=== PATIENT | female | born 1945 | race Two or more races ===

== ENCOUNTER → 2016-12-07 | Outpatient (CLI) | payer MEDICARE, OTHER ==
[~2016-12-07] MED LIST: DICLOFENAC SODI75 MG ORAL; FLUOXETINE HCL10 MG ORAL; FLUOXETINE HCL40 MG ORAL; METOPROLOL SUCC50 MG ORAL; OMEGA 3 FISH O1 EAC1 PO; PREMARIN0.45 MG ORAL; PREMARIN1.25 MG PO; PROVERA2.5 MG ORAL; UNOBMED; ZANTAC150 MG ORAL
--- NOTE | 2016-12-07 15:18 | GI Initial Consult Note ---
History of Present Illness General Date patient seen: Dec 07, 2016 Time patient seen: 15:08 Referring physician: JUAN Reason for Consultation: CONSTIPATION Present Illness HPI 71 year old female patient referred to [facility] by Dr. Rojas for evaluation of constipation and repeat colonoscopy. Hx of EGD/colonoscopy back in 2010 with dx of gastric ulcer and diverticulosis. >> H. Pylori negative Home Meds Reported Medications Fluoxetine Hcl* (FLUOXETINE HCL*) 10 Mg Capsule, ORAL DAILY, CAP 08/18/14 [place]-3 Fatty Acids/Fish Oil (OMEGA 3 FISH OIL SOFTGEL) 1 Each Capsule.dr, 1 EACH PO DAILY, CAP 08/18/14 Medroxyprogesterone Acet* (PROVERA*) 2.5 Mg Tablet, ORAL DAILY, #10 TAB 0 Refills 08/18/14 Estrogens,Conjugated (PREMARIN) 0.45 Mg Tablet, ORAL DAILY, #30 TAB 0 Refills 08/18/14 Med list reviewed/reconciled: Yes Allergies: Coded Allergies: No Known Allergies (Unverified , 08/16/14) Patient History History Provided By: Patient, Medical Record PMH Narrative From [facility] on HRT x 20 years Dyspnea hypothyroidism PSHx Thyroidectomy Family History Narrative N/A Social History: Denies: alcohol use, drug use, other, smoking Review of Systems All Other Systems: negative except mentioned in HPI Physical Exam T 98 BP 123/68 P 86 HT 5'7 WT 181 General Appearance: well appearing, alert Head: normocephalic EENT: normal ENT inspection Neck: full range of motion, supple Respiratory: lungs clear, normal breath sounds, no respiratory distress Cardiovascular: normal rate Gastrointestinal: normal inspection, non tender, soft Rectal: deferred Genitourinary: normal inspection, no CVA tenderness Musculoskeletal: back normal Neurologic: normal inspection, alert, oriented x3, responsive Psychiatric: normal inspection, judgement/insight normal, memory normal Skin: normal inspection, normal color, no rash, warm/dry GI: Plan Problems: (1) Colonoscopy planned (2) Constipation (3) Gastric ulcer (4) Diverticulosis Plan increase Linzess to 290 mcg trial rx Movantic RTC x 1 week discuss repeat colon on next visit Seen with Dr. Roberts Thank you for referring this kind patient. Jeaneth Desir N.P. Dec 07, 2016 15:18
[2016-12-07 16:15] VITALS: BP 123/68
== END | disposition home or self-care (01) ==
LOC: PAN 14:32
DX: K59.00 Constipation, unspecified (principal); K25.9 Gastric ulcer, unspecified as acute or chronic, without hemorrhage or perforation; K57.90 Diverticulosis of intestine, part unspecified, without perforation or abscess without bleeding
CPT/HCPCS: 99201

== ENCOUNTER 2017-05-17 13:41 | Outpatient (CLI) | payer MEDICARE, OTHER ==
[2017-05-17 13:53] VITALS: BP 114/61
[2017-05-17] MEDS ORDERED: LINZESS145 MCG PO (13:56)
[2017-05-17] MEDS ORDERED: MINERAL OIL25 ML ORAL (13:56)
--- NOTE | 2017-05-17 14:39 | GI Progress Note ---
Assessment/Plan Problems: (1) Constipation ICD Codes: K59.00 - Constipation, unspecified SNOMED: 63618969 Status: stable Status Narrative Seen with Dr. Roberts. Assessment/Plan rx Miralax rx lactulose cont Linzess to 290 mcg RTC x 3 months discuss repeat colon on next visit Subjective Subjective constipation Objective Last 24 Hour Vital Signs Date Time Temp Pulse Resp B/P Pulse Ox O2 Delivery O2 Flow Rate FiO2 05/17/17 13:53 98.0 89 16 114/61 General Appearance: no apparent distress, alert Cardiovascular: normal rate Respiratory/Chest: normal breath sounds, no respiratory distress Abdominal Exam: normal bowel sounds, non tender, soft Extremities: normal range of motion Jeaneth Desir N.P. May 17, 2017 14:39
== END 2017-05-17 14:18 | disposition home or self-care (01) ==
LOC: PAN 13:41
DX: K59.00 Constipation, unspecified (principal)
CPT/HCPCS: 99211

== ENCOUNTER 2017-06-28 13:36 | Outpatient (CLI) | payer MEDICARE, OTHER ==
[~2017-06-28 13:36] MED LIST changes: +LINZESS145 MCG PO; +MINERAL OIL25 ML ORAL
--- NOTE | 2017-06-28 17:32 | GI Progress Note ---
Assessment/Plan Problems: (1) Diverticulosis ICD Codes: K57.90 - Diverticulosis of intestine, part unspecified, without perforation or abscess without bleeding SNOMED: 989287702 (2) Gastric ulcer ICD Codes: K25.9 - Gastric ulcer, unspecified as acute or chronic, without hemorrhage or perforation SNOMED: 883366573 (3) Constipation ICD Codes: K59.00 - Constipation, unspecified SNOMED: 48239259 Status: stable Status Narrative Discussed with Dr. Roberts. Assessment/Plan Rx Trulance ordered breath test rx Librax bid RTC post studies discuss repeat colon on next visit Subjective Gastrointestinal/Abdominal: Reports: abdominal pain Objective T 98 BP 103/53 P 84 98 RA General Appearance: no apparent distress, alert Cardiovascular: normal rate Respiratory/Chest: normal breath sounds, no respiratory distress Abdominal Exam: normal bowel sounds, non tender, soft Extremities: normal range of motion Jeaneth Desir N.P. Jun 28, 2017 17:32
== END 2017-06-28 14:05 | disposition home or self-care (01) ==
LOC: PAN 13:36
DX: K57.90 Diverticulosis of intestine, part unspecified, without perforation or abscess without bleeding (principal); K25.9 Gastric ulcer, unspecified as acute or chronic, without hemorrhage or perforation; K59.00 Constipation, unspecified
CPT/HCPCS: 99211

== ENCOUNTER 2017-08-16 13:06 | Outpatient (CLI) | payer MEDICARE, OTHER ==
--- NOTE | 2017-08-16 13:49 | GI Progress Note ---
Assessment/Plan Problems: (1) Gas pain ICD Codes: R14.1 - Gas pain SNOMED: 98271344 (2) Constipation ICD Codes: K59.00 - Constipation, unspecified SNOMED: 23841705 (3) IBS (irritable bowel syndrome) ICD Codes: K58.9 - Irritable bowel syndrome without diarrhea SNOMED: 29662283 Status: stable Status Narrative Seen with Dr. Roberts. Assessment/Plan rx miralax simethicone prn RTC x 2 weeks Subjective Subjective abdominal pain >> LUQ/LLQ constipation abdominal bloating Objective T 98.2 BP 121/58 P 89 General Appearance: no apparent distress, alert Cardiovascular: normal rate Respiratory/Chest: normal breath sounds, no respiratory distress Abdominal Exam: normal bowel sounds, non tender, soft Extremities: normal range of motion Jeaneth Desir N.P. Aug 16, 2017 13:49
[2017-08-16 15:15] VITALS: BP 121/58
== END 2017-08-16 13:45 | disposition home or self-care (01) ==
LOC: PAN 13:06
DX: R14.1 Gas pain (principal); K59.00 Constipation, unspecified; K58.9 Irritable bowel syndrome, unspecified
CPT/HCPCS: 99211

== ENCOUNTER 2017-10-23 11:16 | Outpatient (CLI) | payer MEDICARE, OTHER ==
[2017-10-23 11:26] VITALS: BP 100/57
[2017-10-23 12:09] LABS: APPEARANCE,URINE SLIGHTLY CLOUDY; KETONES,URINE NEGATIVE (NEGATIVE); LEUKOCYTE ESTERASE ,URINE NEGATIVE (NEGATIVE); NITRITE,URINE NEGATIVE (NEGATIVE); PH,URINE 5 (4.5-8.0); PROTEIN,URINE NEGATIVE (NEGATIVE); UROBILINOGEN,URINE NORMAL MG/DL (0.0-1.0)
[2017-10-23 12:12] LABS: RBC,URINE 0-2 /HPF (0 - 2); WBC,URINE 0-2 /HPF (0 - 2)
[2017-10-23 12:13] LABS: BACTERIA,URINE FEW /HPF; SQUAMOUS EPITHELIAL CELL,UR FEW /LPF (NONE/OCC)
--- NOTE | 2017-10-23 13:55 | GI Progress Note ---
Assessment/Plan Problems: (1) IBS (irritable bowel syndrome) ICD Codes: K58.9 - Irritable bowel syndrome without diarrhea SNOMED: 53691253 (2) Gas pain ICD Codes: R14.1 - Gas pain SNOMED: 82445356 (3) Constipation ICD Codes: K59.00 - Constipation, unspecified SNOMED: 60186110 Status: stable Status Narrative Seen with Dr. Roberts. Assessment/Plan ordered UA + culture rx Bentyl 20mg Nexium RTC x 1 month Subjective Subjective abdominal pain constipation abdominal bloating Objective T 98.2 BP 110/57 P 87 97 RA Laboratory Tests Test 10/23/17 11:47 Urine Color Pale yellow Urine Appearance Slightly cloudy Urine pH 5 (4.5-8.0) Urine Specific [place] 1.015 (1.005-1.035) Urine Protein Negative (NEGATIVE) Urine Glucose (UA) Negative (NEGATIVE) Urine Ketones Negative (NEGATIVE) Urine Occult Blood 2+ (NEGATIVE) H Urine Nitrite Negative (NEGATIVE) Urine Bilirubin Negative (NEGATIVE) Urine Urobilinogen Normal MG/DL (0.0-1.0) Urine Leukocyte Esterase Negative (NEGATIVE) Urine RBC 0-2 /HPF (0 - 2) Urine WBC 0-2 /HPF (0 - 2) Urine Squamous Epithelial Cells Few /LPF (NONE/OCC) Urine Bacteria Few /HPF (NONE) General Appearance: WD/WN, no apparent distress, alert Cardiovascular: normal rate Respiratory/Chest: normal breath sounds, no respiratory distress Abdominal Exam: normal bowel sounds, non tender, soft Extremities: normal range of motion, non-tender Jeaneth Desir N.P. Oct 23, 2017 13:55
== END 2017-10-23 11:49 | disposition home or self-care (01) ==
LOC: PAN 11:16
DX: K58.9 Irritable bowel syndrome, unspecified (principal); R14.1 Gas pain; K59.00 Constipation, unspecified
CPT/HCPCS: 81003; 87086; G0463; 99212

== ENCOUNTER 2017-11-01 12:57 | Outpatient (CLI) | payer MEDICARE, OTHER ==
[2017-11-01 13:07] VITALS: BP 114/60
--- NOTE | 2017-11-01 13:30 | GI Progress Note ---
Assessment/Plan Problems: (1) Hx of lymphoma ICD Codes: Z85.72 - Personal history of non-Hodgkin lymphomas SNOMED: 117628462 (2) Diverticulitis ICD Codes: K57.92 - Diverticulitis of intestine, part unspecified, without perforation or abscess without bleeding SNOMED: 755153914 (3) Hemorrhoids ICD Codes: K64.9 - Unspecified hemorrhoids SNOMED: 24797443 (4) Constipation ICD Codes: K59.00 - Constipation, unspecified SNOMED: 81346920 (5) IBS (irritable bowel syndrome) ICD Codes: K58.9 - Irritable bowel syndrome without diarrhea SNOMED: 92128178 (6) Gas pain ICD Codes: R14.1 - Gas pain SNOMED: 08556150 Status: stable Status Narrative Seen with Dr. Roberts. Assessment/Plan EGD/colonoscopy scheduled 11/26/17. - CLD & (Nulytely/Suprep/Movi-Prep) prep instructions given and acknowledged by patient. - NPO @ [place] day prior procedure explained. change Dexilant to QOD Rx Xifaxan for SIBO last colonoscopy 2010 Subjective Subjective abdominal pain LUQ/LLQ loss of appetite Objective Last 24 Hour Vital Signs Date Time Temp Pulse Resp B/P (MAP) Pulse Ox O2 Delivery O2 Flow Rate FiO2 11/01/17 13:07 97.8 66 16 114/60 98 General Appearance: WD/WN, no apparent distress, alert Cardiovascular: normal rate Respiratory/Chest: normal breath sounds, no respiratory distress Abdominal Exam: normal bowel sounds, non tender, soft Extremities: normal range of motion, non-tender Jeaneth Desir NJuan Nov 01, 2017 13:30
[2017-11-01] MEDS ORDERED: BENTYL10 MG ORAL (16:02)
[2017-11-01] MEDS ORDERED: DEXILANT60 MG ORAL (16:02)
== END 2017-11-01 13:32 | disposition home or self-care (01) ==
LOC: PAN 12:57
DX: K57.92 Diverticulitis of intestine, part unspecified, without perforation or abscess without bleeding (principal); K64.9 Unspecified hemorrhoids; Z85.72 Personal history of non-Hodgkin lymphomas; K59.00 Constipation, unspecified; K58.9 Irritable bowel syndrome, unspecified; R14.1 Gas pain
CPT/HCPCS: 99212

== ENCOUNTER 2017-11-28 08:38 | Day surgery (SDC) | payer MEDICARE, MEDICAID ==
[~2017-11-28] VITALS: Ht 170.2 cm; Wt 79.4 kg
[2017-11-28] VITALS (8 sets, daily range): BP systolic 117–129; BP diastolic 60–71
[~2017-11-28 08:38] MED LIST changes: +BENTYL10 MG ORAL; +DEXILANT60 MG ORAL
[2017-11-28] MEDS ORDERED: Lidocaine 1% MPF 10mg/ml 5ml ONE (08:39)
[2017-11-28] MEDS ORDERED: Propofol 200mg/20ml IV ONE (08:39)
[2017-11-28] MEDS ORDERED: NS 500ML ONE (08:39)
--- NOTE | 2017-11-28 09:19 | Pre-Procedure Note/Attestation ---
Pre-Procedure Note/Attestation Complete Prior to Procedure Planned Procedure: not applicable Procedure Narrative: esophagogastroduodenoscopy and colonoscopy Indications for Procedure Pre-Operative Diagnosis: screening colon, GERD Attestation I attest that I discussed the nature of the procedure; its benefits; risks and complications; and alternatives (and the risks and benefits of such alternatives ), prior to the procedure, with the patient (or the patient's legal group sales representative). I attest that, if there was a reasonable possibility of needing a blood transfusion, the patient (or the patient's legal group sales representative) was given the [facility] Health Services standardized written summary, pursuant to the [place] Blood Safety Act ([place] Health and Safety Code # 1645, as amended). I attest that I re-evaluated the patient just prior to the surgery and that there has been no change in the patient's H&P, except as documented below: JALEN LATIF Nov 28, 2017 09:19
--- NOTE | 2017-11-28 09:20 | Short Stay Surgery H&P ---
History of Present Illness History of Present Illness Chief Complaint screening colon, GERD HPI Ro Waters is a 72 year old female who was admitted on for IBSD Patient History Allergies: Coded Allergies: No Known Allergies (Unverified , 08/16/14) PAST MEDICAL HISTORY: (1) Gastric ulcer (2) Diverticulosis (3) Constipation (4) Hemorrhoids (5) IBS (irritable bowel syndrome) (6) Hx of lymphoma Past Surgeries: Social History: Medication History Scheduled Dexlansoprazole (Dexilant), 60 MG ORAL DAILY, (Reported) Diclofenac Sod* (Voltaren*), 75 MG ORAL BID, (Reported) Dicyclomine Hcl* (Bentyl*), 10 MG ORAL FOUR TIMES A DAY, (Reported) Estrogens,Conjugated (Premarin), 0.625 MG PO DAILY, (Reported) Fluoxetine Hcl* (Fluoxetine Hcl*), 40 MG ORAL DAILY, (Reported) Medroxyprogesterone Acet* (Provera*), 5 MG ORAL DAILY, (Reported) Metoprolol Succinate* (Metoprolol Succinate*), 50 MG ORAL DAILY, (Reported) Mineral Oil (Mineral Oil), 25 ML ORAL PRN, (Reported) Ranitidine Hcl* (Zantac*), 150 MG ORAL DAILY, (Reported) Review of Systems Cardiovascular: Reports: no symptoms Respiratory: Reports: no symptoms Skeletal: Reports: no symptoms Gastrointestinal: Reports: no symptoms Genitourinary: Reports: no symptoms Neurologic: Reports: no symptoms Endocrine: Reports: no symptoms Hematologic: Reports: no symptoms Physical Exam Skin: normal HENT: normal Heart: normal Lungs: normal Abdomen: normal Extremities: normal Plan Plan of Care esophagogastroduodenoscopy and colonoscopy Final Diagnosis: Attestation Are the patient's medical conditions optimized for surgery? Attestation Response: yes JALEN LATIF Nov 28, 2017 09:20
--- NOTE | 2017-11-28 11:40 | Endoscopy Procedure Note ---
Endoscopy Procedure Note Indication for Procedure: GERD, hemorrhoids Procedures Performed: EGD, colonoscopy Operative Findings/Diagnosis: gastric ulcer, hemorrhoids Specimen: yes Pt Tolerated Procedure Well: Yes Estimated Blood Loss: none Anesthesiologist: gianni Anesthesia: MAC Implant(s) used?: No 50 yrs or older w/o bx or poly: No 10yrs. F/U not recommended: Yes If not recommended, why?: Above average risk 10 yrs. F/U needed: Yes 18 years or older w/prev. colo: Yes <3yrs. since last colonoscopy: No JALEN LATIF Nov 28, 2017 11:40
--- NOTE | 2017-11-28 11:53 | Anethesia Preoperative Eval ---
Anesthesia Pre-op PMH/ROS General Date of Evaluation: Nov 28, 2017 Time of Evaluation: 10:30 Anesthesiologist: jason ASA Score: ASA 3 Mallampati Score Class I : Soft palate, uvula, fauces, pillars visible Class II: Soft palate, uvula, fauces visible Class III: Soft palate, base of uvula visible Class IV: Only hard plate visible Mallampati Classification: Class II Surgeon: josie Diagnosis: ibsd Surgical Procedure: egd/colonoscopy Anesthesia History: none Social History: smoking - nonsmoker Family History: no anesthesia problems Allergies: Coded Allergies: No Known Allergies (Unverified , 08/16/14) Medications: see eMAR Past Medical History Pulmonary: Reports: asthma, other - lung cancer Gastrointestinal/Genitourinary: Reports: other - ibsd Hematology/Immune: Reports: other - lymphoma Anesthesia Pre-op Phys. Exam Physician Exam Last Vital Signs Date Time Temp Pulse Resp B/P (MAP) Pulse Ox O2 Delivery O2 Flow Rate FiO2 11/28/17 11:40 74 19 120/68 100 Room Air 11/28/17 11:33 3.0 11/28/17 11:28 97.8 Constitutional: NAD Neurologic: CN 2-12 intact Cardiovascular: RRR Respiratory: CTA Gastrointestinal: S/NT/ND Airway Exam Mallampati Score: Class II MO: full Neck: supple TMD: 2fb ROM: limited Anesthesia Pre-op A/P Studies Pre-op Studies: EKG - nsr Risk Assessment & Plan Assessment: asa3 Plan: mac Status Change Before Surgery: No Pre-Antibiotics Drug: MAINOR Treviño Nov 28, 2017 11:53
--- NOTE | 2017-11-28 11:54 | Immediate Post-Op Evaluation ---
Immediate Post-Op Evalulation Immediate Post-Op Evalulation Procedure: egd/colonoscopy Date of Evaluation: Nov 28, 2017 Time of Evaluation: 11:40 IV Fluids: 500ml 0.9ns Blood Products: none Estimated Blood Loss: negligible Blood Pressure Systolic: 117 Blood Pressure Diastolic: 71 Pulse Rate: 74 Respiratory Rate: 18 O2 Sat by Pulse Oximetry: 100 Temperature (Fahrenheit): 97.9 Pain Score (1-10): 0 Nausea: No Vomiting: No Complications none Patient Status: awake, reacts, patent Hydration Status: adequate Drug: MAINOR Treviño Nov 28, 2017 11:54
[2017-11-28] MEDS ORDERED: Atropine Inj 1mg/10ml Syr IV PRN (12:00)
[2017-11-28] MEDS ORDERED: fentaNYL 100 mcg/2 mL IV PRN (12:00)
[2017-11-28] MEDS ORDERED: Midazolam 2mg/2ml Inj IVP PRN (12:00)
[2017-11-28] MEDS ORDERED: DiphenhydrAMINE 50mg/ml Inj IVP PRN (12:00)
--- NOTE | 2017-11-28 12:00 | 48 Hour Post Anesthesia Eval ---
Post Anesthesia Evaluation Procedure: egd/colonoscopy Date of Evaluation: Nov 28, 2017 Time of Evaluation: 11:42 Blood Pressure Systolic: 120 0: 80 Pulse Rate: 85 Respiratory Rate: 18 Temperature (Fahrenheit): 97.9 O2 Sat by Pulse Oximetry: 100 Airway: patent Nausea: No Vomiting: No Pain Intensity: 0 Hydration Status: adequate Cardiopulmonary Status: stable Mental Status/LOC: patient returned to baseline Post-Anesthesia Complications: none Follow-up care needed: N/A MAINOR GARCIA Nov 28, 2017 12:00
--- NOTE | 2017-11-28 21:45 | Procedure Note ---
DATE OF PROCEDURE: 11/28/2017 SURGEON: Brodie Roberts M.D. PROCEDURE: Upper endoscopy with biopsy and colonoscopy. ANESTHESIA: Per Dr. Za Peterson. INSTRUMENT: Olympus adult flexible upper endoscope and colonoscope. INDICATION: Screening colonoscopy, abdominal pain, and GERD. REASON FOR PROCEDURE: The procedure, risks, benefits, and possible consequences, including hemorrhage, aspiration, perforation and infection, and alternative treatments, were explained to the patient/legal guardian by Dr. Brodie Roberts and the patient/legal guardian understood and accepted these risks. DESCRIPTION OF PROCEDURE: After informed consent was obtained and the patient was adequately sedated, Olympus upper endoscope was advanced from mouth into the second portion of the duodenum and retroflexion was performed in the stomach. The patient had about 1 cm ulcer in the peripyloric region along the greater curvature in the antrum of the stomach . No visible vessel. No adherent clot. Random biopsy from the edge of the ulcer was obtained. Also, biopsy from the body and antrum was obtained to rule out H. pylori infection. At this time, the upper endoscope was retrieved and the patient was turned over for colonoscopy. First, a rectal exam was performed, which showed positive for internal and external hemorrhoids. Then, the scope was advanced from the rectum into the cecum documented by appendiceal orifice, ileocecal valve, and right upper quadrant palpation. Quality of prep was good. The patient had no obvious mass or polyp in the colon. There was few scattered diverticulosis. Retroflexion of rectum showed evidence of internal hemorrhoids. SUMMARY OF FINDINGS: 1. Gastric ulcer. See above for details. 2. Gastritis, status post biopsy. 3. Scattered diverticulosis. 4. Internal hemorrhoids. RECOMMENDATIONS: 1. Follow up biopsies and treat accordingly. 2. We will start the patient on PPI daily. Brodie Roberts M.D. DR: YUMIKO JOB#: [id number] CC:
--- NOTE | 2017-12-01 15:37 | Cardiology Report ---
APPROVED REPORT EKG Measurement Heart [id number] Normal sinus rhythm Possible inferior infarct, age undetermined Abnormal ECG
== END 2017-11-28 12:40 | disposition home or self-care (01) ==
LOC: GAS 08:38
DX: Z12.11 Encounter for screening for malignant neoplasm of colon (principal); K21.9 Gastro-esophageal reflux disease without esophagitis; K25.9 Gastric ulcer, unspecified as acute or chronic, without hemorrhage or perforation; K57.90 Diverticulosis of intestine, part unspecified, without perforation or abscess without bleeding; K64.8 Other hemorrhoids; K58.9 Irritable bowel syndrome, unspecified; Z85.72 Personal history of non-Hodgkin lymphomas; Z85.118 Personal history of other malignant neoplasm of bronchus and lung; K29.50 Unspecified chronic gastritis without bleeding
CPT/HCPCS: 43239; 45378; 93005; J2704; J7040; 94003; 94150

== ENCOUNTER 2018-01-14 14:26 | Outpatient (CLI) | payer MEDICARE, OTHER ==
[2018-01-14 14:30] VITALS: BP 104/54
--- NOTE | 2018-01-14 15:24 | GI Progress Note ---
Assessment/Plan Problems: (1) Gastric ulcer ICD Codes: K25.9 - Gastric ulcer, unspecified as acute or chronic, without hemorrhage or perforation SNOMED: 794868996 Status: stable Status Narrative Seen with Dr. Roberts. Assessment/Plan s/p EGD/colonoscopy SUMMARY OF FINDINGS: 1. Gastric ulcer. 2. Gastritis, status post biopsy. 3. Scattered diverticulosis. 4. Internal hemorrhoids. RECOMMENDATIONS: Follow up biopsies and treat accordingly. >>atypical mucosa, not unequivocally neoplastic, requires repeat biopsy repeat EGD scheduled 01/30/18 - NPO @ [place] day prior procedure explained to patient trial amitiza, xifaxan cont dexilant currently taking miralax and bentyl Subjective Gastrointestinal/Abdominal: Reports: no symptoms Objective T 98.0 BP 104/54 P 95 98 RA General Appearance: WD/WN, no apparent distress, alert, obese Cardiovascular: normal rate Respiratory/Chest: normal breath sounds, no respiratory distress Abdominal Exam: normal bowel sounds, non tender, soft Extremities: normal range of motion, non-tender Jeaneth Desir N.P. Jan 14, 2018 15:24
== END 2018-01-14 14:59 | disposition home or self-care (01) ==
LOC: PAN 14:26
DX: K25.9 Gastric ulcer, unspecified as acute or chronic, without hemorrhage or perforation (principal); K57.90 Diverticulosis of intestine, part unspecified, without perforation or abscess without bleeding; K64.8 Other hemorrhoids; E66.9 Obesity, unspecified
CPT/HCPCS: 99212

== ENCOUNTER 2018-01-30 07:46 | Day surgery (SDC) | payer MEDICARE, MEDICAID ==
[2018-01-30] VITALS (8 sets, daily range): BP systolic 114–132; BP diastolic 58–68
[~2018-01-30] VITALS: Ht 172.7 cm; Wt 77.6 kg
--- NOTE | 2018-01-30 06:28 | Anethesia Preoperative Eval ---
Anesthesia Pre-op PMH/ROS General Date of Evaluation: Jan 30, 2018 Time of Evaluation: 06:26 Anesthesiologist: jason ASA Score: ASA 3 Mallampati Score Class I : Soft palate, uvula, fauces, pillars visible Class II: Soft palate, uvula, fauces visible Class III: Soft palate, base of uvula visible Class IV: Only hard plate visible Mallampati Classification: Class II Surgeon: josie Diagnosis: gastric ulcer Surgical Procedure: egd Anesthesia History: none Social History: smoking - nonsmoker Family History: no anesthesia problems Allergies: Coded Allergies: No Known Allergies (Unverified , 08/16/14) Medications: see eMAR Past Medical History Pulmonary: Reports: asthma, other - lung cancer Gastrointestinal/Genitourinary: Reports: GERD, other - ibs, hemorrhoids Neurologic/Psychiatric: Reports: depression/anxiety Endocrine: Reports: hypothyroidism Anesthesia Pre-op Phys. Exam Physician Exam Last Vital Signs Date Time Temp Pulse Resp B/P (MAP) Pulse Ox O2 Delivery O2 Flow Rate FiO2 01/30/18 08:41 97.2 94 20 121/67 97 Room Air 97.2 Constitutional: NAD Neurologic: CN 2-12 intact Cardiovascular: RRR Respiratory: CTA Gastrointestinal: S/NT/ND Airway Exam Mallampati Score: Class II MO: full Neck: short TMD: 2fb ROM: full Anesthesia Pre-op A/P Risk Assessment & Plan Assessment: asa3 Plan: mac Status Change Before Surgery: No Pre-Antibiotics Drug: MAINOR Treviño Jan 30, 2018 06:28
[~2018-01-30 07:46] MED LIST changes: +Atropine Inj 1mg/10ml Syr IV PRN; +DiphenhydrAMINE 50mg/ml Inj IVP PRN; +Midazolam 2mg/2ml Inj IVP PRN; +fentaNYL 100 mcg/2 mL IV PRN
--- NOTE | 2018-01-30 09:04 | Pre-Procedure Note/Attestation ---
Pre-Procedure Note/Attestation Complete Prior to Procedure Planned Procedure: not applicable Procedure Narrative: egd Indications for Procedure Pre-Operative Diagnosis: abd pain Attestation I attest that I discussed the nature of the procedure; its benefits; risks and complications; and alternatives (and the risks and benefits of such alternatives ), prior to the procedure, with the patient (or the patient's legal customer care representative). I attest that, if there was a reasonable possibility of needing a blood transfusion, the patient (or the patient's legal customer care representative) was given the [facility] of [facility] Services standardized written summary, pursuant to the [place] Blood Safety Act ([place] Health and Safety Code # 1645, as amended). I attest that I re-evaluated the patient just prior to the surgery and that there has been no change in the patient's H&P, except as documented below: JALEN LATIF Jan 30, 2018 09:04
--- NOTE | 2018-01-30 09:07 | Short Stay Surgery H&P ---
History of Present Illness History of Present Illness Chief Complaint abd pain HPI Ro Waters is a 72 year old female who was admitted on for Gastric Ulcer Patient History Allergies: Coded Allergies: No Known Allergies (Unverified , 08/16/14) PAST MEDICAL HISTORY: (1) Diverticulitis (2) Constipation (3) Hemorrhoids (4) Hx of lymphoma (5) IBS (irritable bowel syndrome) (6) Gastric ulcer Past Surgeries: Social History: Medication History Scheduled Dexlansoprazole (Dexilant), 60 MG ORAL DAILY, (Reported) Diclofenac Sod* (Voltaren*), 75 MG ORAL BID, (Reported) Dicyclomine Hcl* (Bentyl*), 10 MG ORAL FOUR TIMES A DAY, (Reported) Estrogens,Conjugated (Premarin), 0.625 MG PO DAILY, (Reported) Medroxyprogesterone Acet* (Provera*), 5 MG ORAL DAILY, (Reported) Discontinued Medications Metoprolol Succinate* (Metoprolol Succinate*), 50 MG ORAL DAILY, (Reported) Discontinued Reason: Pt stopped taking med Review of Systems Cardiovascular: Reports: no symptoms Respiratory: Reports: no symptoms Skeletal: Reports: no symptoms Gastrointestinal: Reports: no symptoms Genitourinary: Reports: no symptoms Neurologic: Reports: no symptoms Endocrine: Reports: no symptoms Hematologic: Reports: no symptoms Physical Exam Vital Signs Last Vital Signs Date Time Temp Pulse Resp B/P (MAP) Pulse Ox O2 Delivery O2 Flow Rate FiO2 01/30/18 08:41 97.2 94 20 121/67 97 Room Air 97.2 Skin: normal HENT: normal Heart: normal Lungs: normal Abdomen: normal Extremities: normal Plan Plan of Care egd Final Diagnosis: Attestation Are the patient's medical conditions optimized for surgery? Attestation Response: yes JALEN LATIF Jan 30, 2018 09:07
[2018-01-30] MEDS ORDERED: Propofol 200mg/20ml IV ONE (10:30)
[2018-01-30] MEDS ORDERED: Lidocaine 1% MPF 10mg/ml 5ml ONE (10:30)
--- NOTE | 2018-01-30 10:58 | Endoscopy Procedure Note ---
Endoscopy Procedure Note General Indication for Procedure: gastric ulcer Procedures Performed: EGD Operative Findings/Diagnosis: same Specimen: yes Pt Tolerated Procedure Well: Yes Estimated Blood Loss: none Anesthesia Anesthesiologist: gianni Anesthesia: MAC Inserted Devices Implant(s) used?: No GI Core Measures 50 yrs or older w/o bx or poly: Not Applicable 10yrs. F/U not recommended: Not Applicable JALEN LATIF Jan 30, 2018 10:58
--- NOTE | 2018-01-30 11:13 | Immediate Post-Op Evaluation ---
Immediate Post-Op Evalulation Immediate Post-Op Evalulation Procedure: egd Date of Evaluation: Jan 30, 2018 Time of Evaluation: 11:12 IV Fluids: 550ml 0.9ns Blood Products: none Estimated Blood Loss: negligible Blood Pressure Systolic: 116 Blood Pressure Diastolic: 58 Pulse Rate: 85 Respiratory Rate: 18 O2 Sat by Pulse Oximetry: 100 Temperature (Fahrenheit): 98.2 Pain Score (1-10): 0 Nausea: No Vomiting: No Complications none Patient Status: awake, reacts, patent Hydration Status: adequate Drug: MAINOR Treviño Jan 30, 2018 11:13
--- NOTE | 2018-01-30 14:15 | 48 Hour Post Anesthesia Eval ---
Post Anesthesia Evaluation Procedure: egd Date of Evaluation: Jan 30, 2018 Time of Evaluation: 11:14 Blood Pressure Systolic: 120 0: 62 Pulse Rate: 69 Respiratory Rate: 18 Temperature (Fahrenheit): 98.2 O2 Sat by Pulse Oximetry: 100 Airway: patent Nausea: No Vomiting: No Pain Intensity: 0 Hydration Status: adequate Cardiopulmonary Status: stable Mental Status/LOC: patient returned to baseline Post-Anesthesia Complications: none Follow-up care needed: N/A MAINOR GARCIA Jan 30, 2018 14:15
--- NOTE | 2018-01-30 15:06 | Cardiology Report ---
APPROVED REPORT EKG Measurement Heart [id number] Normal sinus rhythm Normal ECG
--- NOTE | 2018-01-30 17:30 | Procedure Note ---
DATE OF PROCEDURE: 01/30/2018 SURGEON: Brodie Roberts M.D. PROCEDURE: Upper endoscopy with biopsy. ANESTHESIOLOGIST: Za Peterson M.D. INSTRUMENT: Olympus adult flexible upper endoscope. INDICATION: Gastric ulcers. REASON FOR PROCEDURE: The procedure, risks, benefits, and possible consequences, including hemorrhage, aspiration, perforation and infection, and alternative treatments, were explained to the patient/legal guardian by Dr. Brodie Roberts and the patient/legal guardian understood and accepted these risks. DESCRIPTION OF PROCEDURE: After informed consent was obtained and the patient was adequately sedated, Olympus upper endoscope was advanced from mouth into the second portion of duodenum and retroflexion was performed in the stomach. The patient has persistent gastric ulceration in the antrum of the stomach at about 7 o'clock position without any adherent clot or visible vessel. Multiple biopsies from this ulcer was obtained to rule out malignancy. We also biopsied antrum area around the ulcer. The patient tolerated the procedure well without any complication. SUMMARY OF FINDINGS: Persistent gastric ulceration status post biopsy. RECOMMENDATIONS: 1. Follow biopsy results. 2. If the biopsies are suspicious for malignancy, the patient would need an EUS for deeper biopsies and staging. We will follow up the biopsy and make further recommendation. Brodie Roberts M.D. DR: YUMIKO JOB#: [id number] CC:
== END 2018-01-30 12:15 | disposition home or self-care (01) ==
LOC: GAS 07:46
DX: K25.9 Gastric ulcer, unspecified as acute or chronic, without hemorrhage or perforation (principal); K57.90 Diverticulosis of intestine, part unspecified, without perforation or abscess without bleeding; Z85.72 Personal history of non-Hodgkin lymphomas; K58.9 Irritable bowel syndrome, unspecified; K21.9 Gastro-esophageal reflux disease without esophagitis; Z85.118 Personal history of other malignant neoplasm of bronchus and lung; E03.9 Hypothyroidism, unspecified; F32.9 Major depressive disorder, single episode, unspecified; F41.9 Anxiety disorder, unspecified
CPT/HCPCS: 43239; 93005; J2704; 94003; 94150

== ENCOUNTER 2018-02-11 14:12 | Outpatient (CLI) | payer MEDICARE, MEDICAID ==
[~2018-02-11 14:12] MED LIST changes: -Atropine Inj 1mg/10ml Syr IV PRN; -DiphenhydrAMINE 50mg/ml Inj IVP PRN; -Midazolam 2mg/2ml Inj IVP PRN; -fentaNYL 100 mcg/2 mL IV PRN
--- NOTE | 2018-02-11 15:29 | GI Progress Note ---
Assessment/Plan Problems: (1) Gastric ulcer ICD Codes: K25.9 - Gastric ulcer, unspecified as acute or chronic, without hemorrhage or perforation SNOMED: 340092108 (2) Gastric adenocarcinoma ICD Codes: C16.9 - Malignant neoplasm of stomach, unspecified SNOMED: 376593401 Status: stable Status Narrative Seen with Dr. Roberts. Assessment/Plan SUMMARY OF FINDINGS EGD: Persistent gastric ulceration status post biopsy. RECOMMENDATIONS: 1. Follow biopsy results. 2. If the biopsies are suspicious for malignancy, the patient would need an EUS for deeper biopsies and staging. >> Bx for gastric adenocarcinoma EUS scheduled on 02/15/18 for staging. d/w family f/u oncology Subjective Gastrointestinal/Abdominal: Reports: abdominal pain Subjective Here for EGD review. Objective T 99.0 BP 121/61 P 63 97 RA General Appearance: WD/WN, no apparent distress, alert Cardiovascular: normal rate Respiratory/Chest: normal breath sounds, no respiratory distress Abdominal Exam: normal bowel sounds, non tender, soft Extremities: normal range of motion, non-tender Jeaneth Desir N.P. Feb 11, 2018 15:29
== END 2018-02-11 14:45 | disposition home or self-care (01) ==
LOC: PAN 14:12
DX: K25.9 Gastric ulcer, unspecified as acute or chronic, without hemorrhage or perforation (principal); C16.9 Malignant neoplasm of stomach, unspecified
CPT/HCPCS: 99212

== ENCOUNTER 2018-04-30 08:56 | Outpatient (CLI) | payer MEDICARE, MEDICAID ==
--- NOTE | 2018-04-30 10:35 | GI Progress Note ---
Assessment/Plan Problems: (1) Gastric adenocarcinoma ICD Codes: C16.9 - Malignant neoplasm of stomach, unspecified SNOMED: 103169614 (2) Gastric ulcer ICD Codes: K25.9 - Gastric ulcer, unspecified as acute or chronic, without hemorrhage or perforation SNOMED: 235463981 (3) Constipation ICD Codes: K59.00 - Constipation, unspecified SNOMED: 55883490 (4) Gas pain ICD Codes: R14.1 - Gas pain SNOMED: 98156491 Status: stable Status Narrative Seen with Dr. Roberts. Assessment/Plan SUMMARY OF FINDINGS: 1. Gastric cancer in the antrum of the stomach along the greater curvature at 50 cm from the incisors, maximum T2 without any involvement of the perigastric fat. No lymph node was seen. 2. Status post EGD and tattooing of the mass for future surgeries. RECOMMENDATIONS: fu with surgical and oncology recs Rx Bentyl 20 mg Miralax cont omeprazole RTC x 3 months Subjective Gastrointestinal/Abdominal: Reports: abdominal pain Subjective generalized abdominal pain GERD, taking omeprazole 40 Objective T 98.4 BP 105/64 71 HR 97 RA General Appearance: WD/WN, no apparent distress, alert Cardiovascular: normal rate Respiratory/Chest: normal breath sounds, no respiratory distress Abdominal Exam: normal bowel sounds, non tender, soft Extremities: normal range of motion, non-tender Rosalba Desir NP Apr 30, 2018 10:35
== END 2018-04-30 09:30 | disposition home or self-care (01) ==
LOC: PAN 08:56
DX: C16.9 Malignant neoplasm of stomach, unspecified (principal); K25.9 Gastric ulcer, unspecified as acute or chronic, without hemorrhage or perforation; K59.00 Constipation, unspecified; R14.1 Gas pain
CPT/HCPCS: 99211

== ENCOUNTER 2018-07-12 15:53 | Outpatient (CLI) | payer MEDICARE, MEDICAID ==
--- NOTE | 2018-07-12 16:33 | Diagnostic Imaging Report ---
Indication: Cough Technique: 2 views of the chest Comparison: None Findings: Lungs and pleural spaces are clear. The heart size is normal. There is a left chest port catheter, tip at the level of the mid superior vena cava. There are midline skin vanessa. There is also a surgical staple line in the left hilar region. There is a large upper mediastinal mass deviating the trachea significantly to the left and narrowing it. Impression: No acute cardiopulmonary process Large upper mediastinal mass, resulting in significant tracheal deviation and narrowing. Correlate with clinical history in any prior exams and may be available, consider CT if clinically indicated Other findings as noted Findings discussed by phone with Dr. Rojas at the time of interpretation
== END 2018-07-12 17:53 | disposition home or self-care (01) ==
LOC: RAD 15:53
DX: R05 Cough (principal)
CPT/HCPCS: 71046

== ENCOUNTER 2018-12-04 14:08 | Outpatient (CLI) | payer MEDICARE, MEDICAID ==
--- NOTE | 2018-12-04 15:35 | GI Progress Note ---
Assessment/Plan Problems: (1) Gastric adenocarcinoma ICD Codes: C16.9 - Malignant neoplasm of stomach, unspecified SNOMED: 573276124 (2) Constipation ICD Codes: K59.00 - Constipation, unspecified SNOMED: 62246840 (3) Gastric ulcer ICD Codes: K25.9 - Gastric ulcer, unspecified as acute or chronic, without hemorrhage or perforation SNOMED: 807704469 (4) IBS (irritable bowel syndrome) ICD Codes: K58.9 - Irritable bowel syndrome without diarrhea SNOMED: 20389514 (5) Hemorrhoids ICD Codes: K64.9 - Unspecified hemorrhoids SNOMED: 89352689 (6) Gas pain ICD Codes: R14.1 - Gas pain SNOMED: 60550272 Status: stable Status Narrative Seen with Dr. Roberts Assessment/Plan Trial Creon 2 tabs p.o. 3 times daily Trulance rx for constipation Return to clinic in 2 months The patient was seen and examined at bedside and all new and available data was reviewed in the patients chart. I agree with the above findings, impression and plan. (Patient seen earlier today. Signature stamp does not reflect patient encounter time.). - Brodie Roberts MD Subjective Subjective Feels lightheaded Objective Temperature 97.9 Blood pressure 89/45 Pulse 66 96% room air General Appearance: WD/WN, no apparent distress, alert Cardiovascular: normal rate Respiratory/Chest: normal breath sounds, no respiratory distress Abdominal Exam: normal bowel sounds, non tender, soft Extremities: normal range of motion, non-tender Rosalba Desir NP Dec 04, 2018 15:35
[2019-08-26] MEDS ORDERED: AMBIEN5 MG ORAL (11:06)
[2019-08-26] MEDS ORDERED: TRAMADOL HCL50 MG ORAL (11:06)
[2019-08-26] MEDS ORDERED: KLONOPIN0.5 MG ORAL (11:06)
[2019-08-26] MEDS ORDERED: LINZESS145 MCG PO (11:06)
[2019-08-26] MEDS ORDERED: GABAPENTIN600 MG ORAL (11:06)
[2019-08-26] MEDS ORDERED: SIMETHICONE80 MG ORAL (11:06)
[2019-08-26] MEDS ORDERED: FOLIC ACID1 MG ORAL (11:06)
[2019-08-26] MEDS ORDERED: ZOFRAN ODT8 MG ORAL (11:06)
[2019-08-26] MEDS ORDERED: TYLENOL #21 EA ORAL (11:06)
[2019-08-26] MEDS ORDERED: PREVACID30 MG ORAL (11:06)
[2019-08-26] MEDS ORDERED: FLUOXETINE HCL40 MG ORAL (11:06)
[2019-08-26] MEDS ORDERED: LORAZEPAM1 MG ORAL (11:06)
== END 2018-12-04 14:38 | disposition home or self-care (01) ==
LOC: PAN 14:08
DX: C16.9 Malignant neoplasm of stomach, unspecified (principal); K59.00 Constipation, unspecified; K25.9 Gastric ulcer, unspecified as acute or chronic, without hemorrhage or perforation; K58.9 Irritable bowel syndrome, unspecified; K64.9 Unspecified hemorrhoids; R14.1 Gas pain
CPT/HCPCS: 99213

== ENCOUNTER 2019-02-20 13:15 | Outpatient (CLI) | payer MEDICARE, MEDICAID ==
--- NOTE | 2019-02-20 13:47 | General Progress Note ---
Assessment/Plan Problem List: (1) Gastric adenocarcinoma ICD Codes: C16.9 - Malignant neoplasm of stomach, unspecified SNOMED: 575235923 (2) IBS (irritable bowel syndrome) ICD Codes: K58.9 - Irritable bowel syndrome without diarrhea SNOMED: 18476201 (3) Hemorrhoids ICD Codes: K64.9 - Unspecified hemorrhoids SNOMED: 29151660 (4) Gas pain ICD Codes: R14.1 - Gas pain SNOMED: 20438202 (5) Constipation ICD Codes: K59.00 - Constipation, unspecified SNOMED: 35460108 (6) Gastric ulcer ICD Codes: K25.9 - Gastric ulcer, unspecified as acute or chronic, without hemorrhage or perforation SNOMED: 971956861 (7) Hx of lymphoma ICD Codes: Z85.72 - Personal history of non-Hodgkin lymphomas SNOMED: 961945052 (8) Diverticulitis ICD Codes: K57.92 - Diverticulitis of intestine, part unspecified, without perforation or abscess without bleeding SNOMED: 695449375 (9) Diverticulosis ICD Codes: K57.90 - Diverticulosis of intestine, part unspecified, without perforation or abscess without bleeding SNOMED: 102405799 Assessment/Plan trial og creon and Trulance cont probiotics patient self switched to Zantac Subjective ROS Limited/Unobtainable: Yes Allergies: Coded Allergies: No Known Allergies (Unverified , 08/16/14) Objective General Appearance: alert EENT: normal ENT inspection Neck: supple Cardiovascular: normal rate Respiratory/Chest: lungs clear Abdomen: normal bowel sounds, non tender, soft Extremities: non-tender Brodie Roberts MD Feb 20, 2019 13:47
[2019-02-20] MEDS ORDERED: TRULANCE PO (14:55)
[2019-02-20] MEDS ORDERED: CREON DR 24,001 EACH PO (14:55)
[2019-02-20] MEDS ORDERED: ZANTAC150 MG ORAL (14:55)
== END 2019-02-20 15:42 | disposition home or self-care (01) ==
LOC: PAN 13:15
DX: K58.9 Irritable bowel syndrome, unspecified (principal); C16.9 Malignant neoplasm of stomach, unspecified; K64.9 Unspecified hemorrhoids; R14.1 Gas pain; K59.00 Constipation, unspecified; K25.9 Gastric ulcer, unspecified as acute or chronic, without hemorrhage or perforation; Z85.72 Personal history of non-Hodgkin lymphomas; K57.92 Diverticulitis of intestine, part unspecified, without perforation or abscess without bleeding; K57.90 Diverticulosis of intestine, part unspecified, without perforation or abscess without bleeding
CPT/HCPCS: 99213

== ENCOUNTER 2019-08-25 13:19 | Outpatient (CLI) | payer MEDICARE, MEDICAID ==
[~2019-08-25 13:19] MED LIST changes: +CREON DR 24,001 EACH PO; +TRULANCE PO
--- NOTE | 2019-08-25 14:23 | General Progress Note ---
Assessment/Plan Problem List: (1) Hx of lymphoma ICD Codes: Z85.72 - Personal history of non-Hodgkin lymphomas SNOMED: 391906896 (2) Gastric adenocarcinoma ICD Codes: C16.9 - Malignant neoplasm of stomach, unspecified SNOMED: 180740131 (3) IBS (irritable bowel syndrome) ICD Codes: K58.9 - Irritable bowel syndrome without diarrhea SNOMED: 36182416 (4) Hemorrhoids ICD Codes: K64.9 - Unspecified hemorrhoids SNOMED: 60227088 (5) Diverticulosis ICD Codes: K57.90 - Diverticulosis of intestine, part unspecified, without perforation or abscess without bleeding SNOMED: 458386533 (6) Constipation ICD Codes: K59.00 - Constipation, unspecified SNOMED: 35033572 Assessment/Plan: last colon 11/2017 Xifaxan elavil RTC one month Subjective ROS Limited/Unobtainable: Yes Allergies: Coded Allergies: No Known Allergies (Unverified , 08/16/14) Objective General Appearance: alert EENT: normal ENT inspection Neck: supple Cardiovascular: normal rate Respiratory/Chest: decreased breath sounds Abdomen: normal bowel sounds, non tender, soft Extremities: non-tender Brodie Roberts MD Aug 25, 2019 14:23
[2019-08-25 14:56] VITALS: BP 109/63
[2019-08-26] MEDS ORDERED: GABAPENTIN600 MG ORAL (11:06)
[2019-08-26] MEDS ORDERED: SIMETHICONE80 MG ORAL (11:06)
[2019-08-26] MEDS ORDERED: FOLIC ACID1 MG ORAL (11:06)
[2019-08-26] MEDS ORDERED: TYLENOL #21 EA ORAL (11:06)
[2019-08-26] MEDS ORDERED: PREVACID30 MG ORAL (11:06)
[2019-08-26] MEDS ORDERED: TRAMADOL HCL50 MG ORAL (11:06)
[2019-08-26] MEDS ORDERED: FLUOXETINE HCL40 MG ORAL (11:06)
[2019-08-26] MEDS ORDERED: KLONOPIN0.5 MG ORAL (11:06)
[2019-08-26] MEDS ORDERED: AMBIEN5 MG ORAL (11:06)
[2019-08-26] MEDS ORDERED: LORAZEPAM1 MG ORAL (11:06)
[2019-08-26] MEDS ORDERED: LINZESS145 MCG PO (11:06)
[2019-08-26] MEDS ORDERED: ZOFRAN ODT8 MG ORAL (11:06)
== END 2019-08-25 15:51 | disposition home or self-care (01) ==
LOC: PAN 13:19
DX: K58.9 Irritable bowel syndrome, unspecified (principal); K64.9 Unspecified hemorrhoids; K57.90 Diverticulosis of intestine, part unspecified, without perforation or abscess without bleeding; K59.00 Constipation, unspecified; C16.9 Malignant neoplasm of stomach, unspecified; Z85.72 Personal history of non-Hodgkin lymphomas

== ENCOUNTER 2019-09-22 13:03 | Outpatient (CLI) | payer MEDICARE, MEDICAID ==
[~2019-09-22 13:03] MED LIST changes: +AMBIEN5 MG ORAL; +FOLIC ACID1 MG ORAL; +GABAPENTIN600 MG ORAL; +KLONOPIN0.5 MG ORAL; +LORAZEPAM1 MG ORAL; +PREVACID30 MG ORAL; +SIMETHICONE80 MG ORAL; +TRAMADOL HCL50 MG ORAL; +TYLENOL #21 EA ORAL; +ZOFRAN ODT8 MG ORAL
[2019-09-23 07:25] VITALS: BP 99/58
[2019-09-23] MEDS ORDERED: AMITRIPTYLINE25 MG ORAL (07:25)
--- NOTE | 2019-09-23 08:58 | General Progress Note ---
Assessment/Plan Problem List: (1) Hx of lymphoma ICD Codes: Z85.72 - Personal history of non-Hodgkin lymphomas SNOMED: 479930257 (2) Gastric adenocarcinoma ICD Codes: C16.9 - Malignant neoplasm of stomach, unspecified SNOMED: 390330661 (3) IBS (irritable bowel syndrome) ICD Codes: K58.9 - Irritable bowel syndrome without diarrhea SNOMED: 98776114 (4) Hemorrhoids ICD Codes: K64.9 - Unspecified hemorrhoids SNOMED: 66590052 (5) Diverticulosis ICD Codes: K57.90 - Diverticulosis of intestine, part unspecified, without perforation or abscess without bleeding SNOMED: 500197596 (6) Constipation ICD Codes: K59.00 - Constipation, unspecified SNOMED: 28464340 Assessment/Plan: Xifaxan increase elavil to 30 mg plan EGD Subjective ROS Limited/Unobtainable: Yes Allergies: Coded Allergies: No Known Allergies (Unverified , 08/16/14) Objective Last 24 Hour Vital Signs Date Time Temp Pulse Resp B/P (MAP) Pulse Ox O2 Delivery O2 Flow Rate FiO2 09/23/19 07:25 97.6 66 16 99/58 (72) 98 General Appearance: alert EENT: normal ENT inspection Neck: supple Cardiovascular: normal rate Respiratory/Chest: lungs clear Abdomen: normal bowel sounds, non tender, soft Extremities: non-tender Brodie Roberts MD Sep 23, 2019 08:58
== END 2019-09-22 15:03 | disposition home or self-care (01) ==
LOC: PAN 13:03
DX: K59.00 Constipation, unspecified (principal); K57.90 Diverticulosis of intestine, part unspecified, without perforation or abscess without bleeding; D64.9 Anemia, unspecified; K58.9 Irritable bowel syndrome, unspecified; C16.9 Malignant neoplasm of stomach, unspecified; Z85.72 Personal history of non-Hodgkin lymphomas
CPT/HCPCS: 99212

== ENCOUNTER 2019-10-01 08:25 | Day surgery (SDC) | payer MEDICARE, MEDICAID ==
[~2019-10-01] VITALS: Ht 165 cm; Wt 73.9 kg
[~2019-10-01 08:25] MED LIST changes: +AMITRIPTYLINE25 MG ORAL; +LR 1000ml 1,000 ML IVLG SCH
[2019-10-01 09:31] VITALS: BP 154/78
[2019-10-01] MEDS ORDERED: XIFAXAN550 MG ORAL (10:19)
[2019-10-01] MEDS ORDERED: Propofol 200mg/20ml IV ONE (11:00)
[2019-10-01] MEDS ORDERED: LR 1000ml ONE (11:00)
[2019-10-01] MEDS ORDERED: fentaNYL 100 mcg/2 mL IV ONE (11:00)
--- NOTE | 2019-10-01 11:24 | Pre-Procedure Note/Attestation ---
Pre-Procedure Note/Attestation Complete Prior to Procedure Planned Procedure: not applicable Procedure Narrative: egd Indications for Procedure Pre-Operative Diagnosis: gastric ca Attestation I attest that I discussed the nature of the procedure; its benefits; risks and complications; and alternatives (and the risks and benefits of such alternatives ), prior to the procedure, with the patient (or the patient's legal hospital sales representative). I attest that, if there was a reasonable possibility of needing a blood transfusion, the patient (or the patient's legal hospital sales representative) was given the [facility] standardized written summary, pursuant to the [place] Blood Safety Act ([place] Health and Safety Code # 1645, as amended). I attest that I re-evaluated the patient just prior to the surgery and that there has been no change in the patient's H&P, except as documented below: Brodie Roberts MD Oct 01, 2019 11:24
--- NOTE | 2019-10-01 11:24 | Short Stay Surgery H&P ---
History of Present Illness History of Present Illness Chief Complaint h/o gastric ca HPI Ro Waters is a 74 year old female who was admitted on for Gerd And Abdominal Pain Patient History Allergies: Coded Allergies: No Known Allergies (Unverified , 08/16/14) PAST MEDICAL HISTORY: (1) Hx of lymphoma (2) Gastric adenocarcinoma (3) IBS (irritable bowel syndrome) (4) Hemorrhoids (5) Diverticulosis (6) Constipation (7) Gas pain (8) Diverticulitis (9) Gastric ulcer Medication History Scheduled Amitriptyline HCl (Elavil*), 10 MG ORAL BEDTIME, (Reported) Lansoprazole* (Prevacid*), 30 MG ORAL DAILY, (Reported) Linaclotide (Linzess), 145 MCG PO DAILY, (Reported) Rifaximin* (Xifaxan*), 550 MG ORAL TID, (Reported) Discontinued Medications Acetaminophen/Codeine (Acetaminophen-Cod #2 Tablet), 1 TAB ORAL Q6H PRN for For Pain, (Reported) Discontinued Reason: Pt stopped taking med Clonazepam* (Klonopin*), 0.5 MG ORAL QHS, (Reported) Discontinued Reason: Pt stopped taking med Estrogens,Conjugated (Premarin), 0.625 MG PO DAILY, (Reported) Discontinued Reason: Pt stopped taking med Fluoxetine Hcl* (Fluoxetine Hcl*), 40 MG ORAL DAILY, (Reported) Discontinued Reason: Pt stopped taking med Folic Acid* (Folic Acid*), 1 MG ORAL DAILY, (Reported) Discontinued Reason: Pt stopped taking med Gabapentin* (Gabapentin*), 600 MG ORAL THREE TIMES A DAY, (Reported) Discontinued Reason: Pt stopped taking med Lorazepam* (Lorazepam*), 1 MG ORAL BID, (Reported) Discontinued Reason: Pt stopped taking med Medroxyprogesterone Acet* (Provera*), 5 MG ORAL DAILY, (Reported) Discontinued Reason: Pt stopped taking med Ondansetron Odt* (Zofran Odt*), 8 MG ORAL Q6H PRN for Nausea & Vomiting, ( Reported) Discontinued Reason: Pt stopped taking med Simethicone* (Simethicone*), 80 MG ORAL Q6HR PRN for GAS PAIN, (Reported) Discontinued Reason: Pt stopped taking med Tramadol Hcl* (Ultram*), 50 MG ORAL Q12HR PRN for For Pain, (Reported) Discontinued Reason: Pt stopped taking med Zolpidem Tartrate* (Ambien*), 5 MG ORAL BEDTIME PRN for Insomnia, (Reported) Discontinued Reason: Pt stopped taking med Review of Systems Cardiovascular: Reports: no symptoms Respiratory: Reports: no symptoms Skeletal: Reports: no symptoms Genitourinary: Reports: no symptoms Neurologic: Reports: no symptoms Endocrine: Reports: no symptoms Physical Exam Vital Signs Last Vital Signs Date Time Temp Pulse Resp B/P (MAP) Pulse Ox O2 Delivery O2 Flow Rate FiO2 10/01/19 10:01 Room Air 10/01/19 09:31 97.4 75 20 154/78 99 Skin: normal HENT: normal Heart: normal Lungs: normal Abdomen: normal Extremities: normal Plan Plan of Care egd Attestation Are the patient's medical conditions optimized for surgery? Attestation Response: yes Brodie Roberts MD Oct 01, 2019 11:24
--- NOTE | 2019-10-01 11:29 | Endoscopy Procedure Note ---
Endoscopy Procedure Note General Indication for Procedure: abd pain Procedures Performed: EGD Operative Findings/Diagnosis: esophagitis Specimen: yes Pt Tolerated Procedure Well: Yes Estimated Blood Loss: none Anesthesia Anesthesiologist: umer Anesthesia: MAC Inserted Devices Implant(s) used?: No GI Core Measures 50 yrs or older w/o bx or poly: Not Applicable 10yrs. F/U recommended: Not Applicable Brodie Roberts MD Oct 01, 2019 11:29
[2019-10-01 11:38] VITALS: BP 131/71
--- NOTE | 2019-10-01 11:41 | Anethesia Preoperative Eval ---
Anesthesia Pre-op PMH/ROS General Date of Evaluation: Oct 01, 2019 Time of Evaluation: 11:06 Anesthesiologist: Edin ASA Score: ASA 3 Mallampati Score Class I : Soft palate, uvula, fauces, pillars visible Class II: Soft palate, uvula, fauces visible Class III: Soft palate, base of uvula visible Class IV: Only hard plate visible Mallampati Classification: Class II Surgeon: Alejandra Diagnosis: H/o CA Surgical Procedure: EGD Anesthesia History: none Family History: no anesthesia problems Allergies: Coded Allergies: No Known Allergies (Unverified , 08/16/14) Medications: see eMAR Patient NPO?: Yes Past Medical History Cardiovascular: Reports: HTN; Denies: CAD, IA, valve dz, arrhythmia, other Pulmonary: Reports: other - h/o lung CA; Denies: asthma, COPD, [place] Gastrointestinal/Genitourinary: Reports: GERD, other - Gastric CA; Denies: CRI, ESRD Neurologic/Psychiatric: Reports: depression/anxiety; Denies: dementia, CVA, TIA, other Endocrine: Reports: hypothyroidism - s/p partial thyroidectomy; Denies: DM, steroids, other HEENT: Reports: cataract (L) - bilateral s/p Sx; Denies: cataract (R), glaucoma, [place] (L), [place] (R), other Hematology/Immune: Denies: anemia, DVT, bleeding disorder, other Musculoskeletal/Integumentary: Reports: OA; Denies: RA, DJD, DDD, edema, other PMH Narrative: as above PSxH Narrative: see H&P Anesthesia Pre-op Phys. Exam Physician Exam Last Vital Signs Date Time Temp Pulse Resp B/P (MAP) Pulse Ox O2 Delivery O2 Flow Rate FiO2 10/01/19 10:01 Room Air 10/01/19 09:31 97.4 75 20 154/78 99 Constitutional: NAD Neurologic: CN 2-12 intact Cardiovascular: RRR, no M/R/G Respiratory: CTA Gastrointestinal: S/NT/ND Airway Exam Mallampati Score: Class II MO: full ROM: limited Teeth: missing Dentures: no upper, no lower Anesthesia Pre-op A/P Risk Assessment & Plan Assessment: ASA 3 Plan: MAC Status Change Before Surgery: No Kirill Jesus MD Oct 01, 2019 11:41
--- NOTE | 2019-10-01 11:42 | Immediate Post-Op Evaluation ---
Immediate Post-Op Evalulation Immediate Post-Op Evalulation Procedure: EGD with Bx Date of Evaluation: Oct 01, 2019 Time of Evaluation: 11:41 IV Fluids: 600 Blood Products: none Estimated Blood Loss: none Urinary Output: none Blood Pressure Systolic: 129 Blood Pressure Diastolic: 68 Pulse Rate: 69 Respiratory Rate: 20 O2 Sat by Pulse Oximetry: 98 Temperature (Fahrenheit): 97.6 Pain Score (1-10): 1 Nausea: No Vomiting: No Complications NONE Patient Status: awake, patent, none Hydration Status: adequate Kirill Jesus MD Oct 01, 2019 11:42
[2019-10-01 11:43] VITALS: BP 129/68
[2019-10-01 11:50] VITALS: BP 124/62
[2019-10-01 12:00] VITALS: BP_SYST 123; BP_SYST 135; BP_DIAS 65; BP_DIAS 71
[2019-10-01 12:20] VITALS: BP 136/68
--- NOTE | 2019-10-01 17:30 | Procedure Note ---
DATE OF PROCEDURE: 10/01/2019 SURGEON: Brodie Roberts M.D. PROCEDURE: Upper endoscopy with biopsy. ANESTHESIA: Per Dr. Jesus. INSTRUMENT: Olympus adult flexible upper endoscope. INDICATION: History of gastric cancer, complaint of abdominal pain. REASON FOR PROCEDURE: The procedure, risks, benefits, and possible consequences, including hemorrhage, aspiration, perforation and infection, and alternative treatments, were explained to the patient/legal guardian by Dr. Brodie Roberts and the patient/legal guardian understood and accepted these risks. PROCEDURE IN DETAIL: After informed consent was obtained and the patient was adequately sedated, Olympus upper endoscope was advanced from mouth into the esophagus. GE junction was found to be about 40 cm from the incisors. There was some minimum peeling of the mucosa in the distal esophagus suggestive of esophagitis. Then, the scope was advanced to the gastric pouch and into the anastomosis and subsequently into the small intestine. There was no evidence of any ulceration. Random biopsy from anastomosis was obtained. The patient tolerated the procedure without any complication. SUMMARY OF FINDINGS: 1. Minimum peeling of the mucosa and the distal esophagus suggestive of distal esophagitis. 2. History of partial gastrectomy with normal anastomosis. RECOMMENDATIONS: Follow up biopsy results and treat accordingly. I want to thank, Dr. Alicia Rojas, for this kind referral. Brodie Roberts M.D. DR: JIL JOB#: [id number] CC: Alicia Rojas M.D.; Fax#: [phone]
[2019-10-02 10:50] VITALS: BP 128/74
--- NOTE | 2019-10-02 10:50 | 48 Hour Post Anesthesia Eval ---
Post Anesthesia Evaluation Procedure: EGD with Bx Date of Evaluation: Oct 01, 2019 Time of Evaluation: 12:40 Blood Pressure Systolic: 128 0: 74 Pulse Rate: 68 Respiratory Rate: 18 Temperature (Fahrenheit): 97.5 O2 Sat by Pulse Oximetry: 98 Airway: patent Nausea: No Vomiting: No Pain Intensity: 1 Hydration Status: adequate Cardiopulmonary Status: stable Mental Status/LOC: patient returned to baseline Follow-up Care/Observations: n/a Post-Anesthesia Complications: none Follow-up care needed: ready to discharge Kirill Jesus MD Oct 02, 2019 10:50
== END 2019-10-01 12:40 | disposition home or self-care (01) ==
LOC: GAS 08:25
DX: R10.9 Unspecified abdominal pain (principal); Z90.49 Acquired absence of other specified parts of digestive tract; Z85.00 Personal history of malignant neoplasm of unspecified digestive organ; Z85.72 Personal history of non-Hodgkin lymphomas; Z79.899 Other long term (current) drug therapy; I10 Essential (primary) hypertension; F32.9 Major depressive disorder, single episode, unspecified; F41.9 Anxiety disorder, unspecified; K21.9 Gastro-esophageal reflux disease without esophagitis; Z85.118 Personal history of other malignant neoplasm of bronchus and lung
CPT/HCPCS: 43239; 93005; J2704; J3010; 94003; 94150

== ENCOUNTER 2019-10-22 12:03 | Outpatient (CLI) | payer MEDICARE, MEDICAID ==
[~2019-10-22 12:03] MED LIST changes: -LR 1000ml 1,000 ML IVLG SCH; +XIFAXAN550 MG ORAL
--- NOTE | 2019-10-22 14:14 | General Progress Note ---
Assessment/Plan Assessment/Plan: Assessment/Plan Problem List: (1) Hx of lymphoma ICD Codes: Z85.72 - Personal history of non-Hodgkin lymphomas SNOMED: 363499545 (2) Gastric adenocarcinoma ICD Codes: C16.9 - Malignant neoplasm of stomach, unspecified SNOMED: 137226282 (3) IBS (irritable bowel syndrome) ICD Codes: K58.9 - Irritable bowel syndrome without diarrhea SNOMED: 53499671 (4) Hemorrhoids ICD Codes: K64.9 - Unspecified hemorrhoids SNOMED: 89180188 (5) Diverticulosis ICD Codes: K57.90 - Diverticulosis of intestine, part unspecified, without perforation or abscess without bleeding SNOMED: 915374167 (6) Constipation ICD Codes: K59.00 - Constipation, unspecified SNOMED: 45413263 Assessment/Plan: EGD reviewed did not tolerate Elavil ADD bentyl anusol HC Subjective ROS Limited/Unobtainable: Yes Allergies: Coded Allergies: No Known Allergies (Unverified , 08/16/14) Objective General Appearance: alert EENT: PERRL/EOMI Neck: supple Cardiovascular: normal rate Respiratory/Chest: decreased breath sounds Abdomen: normal bowel sounds, non tender, soft Extremities: non-tender Brodie Roberts MD Oct 22, 2019 14:14
== END 2019-10-22 14:03 | disposition home or self-care (01) ==
LOC: PAN 12:03
DX: C16.9 Malignant neoplasm of stomach, unspecified (principal); K58.9 Irritable bowel syndrome, unspecified; K64.9 Unspecified hemorrhoids; K57.90 Diverticulosis of intestine, part unspecified, without perforation or abscess without bleeding; K59.00 Constipation, unspecified; Z85.72 Personal history of non-Hodgkin lymphomas

== ENCOUNTER 2020-01-21 12:46 | Outpatient (CLI) | payer MEDICARE, MEDICAID ==
--- NOTE | 2020-01-21 14:41 | General Progress Note ---
Assessment/Plan Assessment/Plan: Assessment/Plan Problem List: (1) Hx of lymphoma ICD Codes: Z85.72 - Personal history of non-Hodgkin lymphomas SNOMED: 530382349 (2) Gastric adenocarcinoma ICD Codes: C16.9 - Malignant neoplasm of stomach, unspecified SNOMED: 750045516 (3) IBS (irritable bowel syndrome) ICD Codes: K58.9 - Irritable bowel syndrome without diarrhea SNOMED: 46984121 (4) Hemorrhoids ICD Codes: K64.9 - Unspecified hemorrhoids SNOMED: 25935605 (5) Diverticulosis ICD Codes: K57.90 - Diverticulosis of intestine, part unspecified, without perforation or abscess without bleeding SNOMED: 765397806 (6) Constipation ICD Codes: K59.00 - Constipation, unspecified SNOMED: 83196215 Assessment/Plan: EGD reviewed ADD michael elizabeth align Subjective ROS Limited/Unobtainable: Yes Allergies: Coded Allergies: No Known Allergies (Unverified , 08/16/14) Objective General Appearance: alert EENT: normal ENT inspection Neck: supple Cardiovascular: normal rate Respiratory/Chest: lungs clear Abdomen: normal bowel sounds, non tender, soft Extremities: non-tender Brodie Roberts MD Jan 21, 2020 14:41
== END 2020-01-21 16:30 | disposition home or self-care (01) ==
LOC: PAN 12:46
DX: C16.9 Malignant neoplasm of stomach, unspecified (principal); Z85.72 Personal history of non-Hodgkin lymphomas; K58.9 Irritable bowel syndrome, unspecified; K64.9 Unspecified hemorrhoids; K57.90 Diverticulosis of intestine, part unspecified, without perforation or abscess without bleeding; K59.00 Constipation, unspecified
CPT/HCPCS: 99212

== ENCOUNTER 2020-07-13 09:22 | Outpatient (CLI) | payer MEDICARE, MEDICAID ==
--- NOTE | 2020-07-13 13:40 | General Progress Note ---
Assessment/Plan Assessment/Plan: 1. History of gastric cancer, status post resection. 2. History of lung cancer, status post resection. 3. IBS. 4. Chronic constipation. 5. Rectal dysfunction. 6. GERD. Kegel Exercises Librax cont current meds RTC prn Subjective ROS Limited/Unobtainable: Yes Allergies: Coded Allergies: No Known Allergies (Unverified , 08/16/14) Objective General Appearance: alert EENT: normal ENT inspection Neck: supple Cardiovascular: normal rate Respiratory/Chest: normal breath sounds Abdomen: normal bowel sounds, non tender, soft Extremities: non-tender Brodie Roberts MD Jul 13, 2020 13:39
== END 2020-07-13 11:22 | disposition home or self-care (01) ==
LOC: PAN 09:22
DX: K21.9 Gastro-esophageal reflux disease without esophagitis (principal); K59.9 Functional intestinal disorder, unspecified; K59.09 Other constipation; K58.9 Irritable bowel syndrome, unspecified; Z85.00 Personal history of malignant neoplasm of unspecified digestive organ; Z85.118 Personal history of other malignant neoplasm of bronchus and lung
CPT/HCPCS: 99212

== ENCOUNTER 2020-09-14 09:57 | Outpatient (CLI) | payer MEDICARE, MEDICAID ==
[2020-09-14 10:25] VITALS: BP 121/67
--- NOTE | 2020-09-14 11:28 | General Progress Note ---
Subjective ROS Limited/Unobtainable: Yes Allergies: Coded Allergies: No Known Allergies (Unverified , 08/16/14) Objective Last 24 Hour Vital Signs Date Time Temp Pulse Resp B/P (MAP) Pulse Ox O2 Delivery O2 Flow Rate FiO2 09/14/20 10:25 97.4 74 16 121/67 100 General Appearance: alert EENT: normal ENT inspection Neck: supple Cardiovascular: normal rate Respiratory/Chest: decreased breath sounds Abdomen: hypoactive bowel sounds Extremities: non-tender Assessment/Plan Assessment/Plan: Assessment/Plan Assessment/Plan: 1. History of gastric cancer, status post resection. 2. History of lung cancer, status post resection. 3. IBS. 4. Chronic constipation. 5. Rectal dysfunction. 6. GERD. Kegel Exercises Librax>>> now will try Bentyl linzess 290 and miralax cont current meds RTC prn Brodie Roberts MD Sep 14, 2020 11:28
[2020-09-14] MEDS ORDERED: ERGOCALCIFEROL PO (14:20)
[2020-09-14] MEDS ORDERED: ATIVAN0.5 MG ORAL (14:20)
[2020-09-14] MEDS ORDERED: OMEGA 3 1,0001 EACH PO (14:20)
[2020-09-14] MEDS ORDERED: B-12 COMPL1000 MCG/1 IJ (14:20)
[2020-09-14] MEDS ORDERED: TRAMADOL HCL50 MG ORAL (14:20)
[2020-09-14] MEDS ORDERED: GABAPENTIN100 MG ORAL (14:20)
[2020-09-14] MEDS ORDERED: SIMETHICONE80 MG ORAL (14:20)
== END 2020-09-14 11:57 | disposition home or self-care (01) ==
LOC: PAN 09:57
DX: K59.09 Other constipation (principal); K58.9 Irritable bowel syndrome, unspecified; K59.9 Functional intestinal disorder, unspecified; K21.9 Gastro-esophageal reflux disease without esophagitis; Z85.028 Personal history of other malignant neoplasm of stomach; Z85.118 Personal history of other malignant neoplasm of bronchus and lung
CPT/HCPCS: 99212

== ENCOUNTER 2020-10-19 11:28 | Outpatient (CLI) | payer MEDICARE, MEDICAID ==
[~2020-10-19 11:28] MED LIST changes: +ATIVAN0.5 MG ORAL; +B-12 COMPL1000 MCG/1 IJ; +ERGOCALCIFEROL PO; +GABAPENTIN100 MG ORAL; +OMEGA 3 1,0001 EACH PO
[2020-10-19 11:42] VITALS: BP 136/78
== END 2020-10-19 13:28 | disposition home or self-care (01) ==
LOC: PAN 11:28
DX: R10.9 Unspecified abdominal pain (principal)
CPT/HCPCS: 99212

== ENCOUNTER 2020-11-17 13:10 | Outpatient (CLI) | payer MEDICARE, MEDICAID ==
[2020-11-17 13:25] VITALS: BP 122/78
== END 2020-11-17 15:17 | disposition home or self-care (01) ==
LOC: PAN 13:10
DX: R10.9 Unspecified abdominal pain (principal)
CPT/HCPCS: 99212

== ENCOUNTER 2020-12-20 13:36 | Outpatient (CLI) | payer MEDICARE, MEDICAID ==
[2020-12-20 13:54] VITALS: BP 131/69
--- NOTE | 2020-12-20 15:15 | General Progress Note ---
Subjective ROS Limited/Unobtainable: Yes Allergies: Coded Allergies: No Known Allergies (Unverified , 08/16/14) Objective Last 24 Hour Vital Signs Date Time Temp Pulse Resp B/P (MAP) Pulse Ox O2 Delivery O2 Flow Rate FiO2 12/20/20 13:54 97.7 84 16 131/69 95 General Appearance: no apparent distress EENT: normal ENT inspection Neck: supple Cardiovascular: normal rate Respiratory/Chest: decreased breath sounds Abdomen: normal bowel sounds, non tender, soft Extremities: non-tender Assessment/Plan Assessment/Plan: Assessment/Plan Assessment/Plan: Assessment/Plan Assessment/Plan: 1. History of gastric cancer, status post resection. 2. History of lung cancer, status post resection. 3. IBS. 4. Chronic constipation. 5. Rectal dysfunction. 6. GERD. Kegel Exercises Librax>>> now will try Bentyl linzess 290 >>> stop taking due to bad reaction now on mineral oil increase elavil to 20 recommend fu with pain management cont current meds RTC prn Brodie Roberts MD Dec 20, 2020 15:15
== END 2020-12-20 16:17 | disposition home or self-care (01) ==
LOC: PAN 13:36
DX: K21.9 Gastro-esophageal reflux disease without esophagitis (principal); K59.09 Other constipation; Z85.00 Personal history of malignant neoplasm of unspecified digestive organ; Z85.118 Personal history of other malignant neoplasm of bronchus and lung; K58.9 Irritable bowel syndrome, unspecified; K59.9 Functional intestinal disorder, unspecified
CPT/HCPCS: 99212